=== PATIENT | female | born 1980 | race Two or more races ===

== ENCOUNTER 2016-07-26 22:38 | Emergency (ER) | payer MEDICAID ==
[~2016-07-26] VITALS: Ht 149.9 cm; Wt 40.8 kg
[2016-07-26 22:55] VITALS: BP 103/59
== END 2016-07-27 03:46 | disposition home or self-care (01) ==
LOC: ER 22:40
DX: J02.9 Acute pharyngitis, unspecified (principal); R09.89 Other specified symptoms and signs involving the circulatory and respiratory systems